=== PATIENT | female | born 1990 | race Caucasian/White ===

== ENCOUNTER 2016-10-29 08:30 | Emergency (ER) | payer OTHER ==
[2016-10-29] MEDS ORDERED: PENICILLIN G BENZATHINE LA 1,200,000 UNIT/2 ML DISP.SYRIN. IM ONE (08:57)
[2016-10-29] MEDS: PENICILLIN G BENZATHINE LA 1,200,000 UNIT/2 ML DISP.SYRIN. IM ONE (08:59)
[2016-10-29 09:15] VITALS: BP 107/77
--- NOTE | 2016-10-29 09:18 | ED.ADGEN ---
Past History Past Medical History: Other Past Surgical History: Other Alcohol Use: Rarely Drug Use: Other Social History Narrative: RECOVERING METH AND COCAINE USER, NONE FOR 7 YEARS Adult General HPI HPI Patient is a 25-year-old female presents emergency Department with a 48 hour history of intermittent subjective fever and sore throat. She denies any nausea , vomiting, cough, congestion. Has been using [id number] medications for her discomfort. Review of Systems Review of Systems Constitutional: Denies fever or chills [] Eyes: Denies change in visual acuity, redness, or eye pain [] HENT: Denies nasal congestion or sore throat [] Respiratory: Denies cough or shortness of breath [] Cardiovascular: No additional information not addressed in HPI [] GI: Denies abdominal pain, nausea, vomiting, bloody stools or diarrhea [] : Denies dysuria or hematuria [] Musculoskeletal: Denies back pain or joint pain [] Integument: Denies rash or skin lesions [] Neurologic: Denies headache, focal weakness or sensory changes [] Endocrine: Denies polyuria or polydipsia [] Current Medications Current Medications Current Medications Medications (Trade) Dose Ordered Sig/Obi Start Time Stop Time Status Last Admin Dose Admin Penicillin G Benzathine (Bicillin L-A) 1,200,000 unit STK-MED ONCE 10/29/16 08:57 10/29/16 08:58 DC Allergies Allergies Allergies Coded Allergies Type Severity Reaction Last Updated Verified Pertussis Vaccines Allergy Unknown 10/29/16 Yes Physical Exam Physical Exam Constitutional: Well developed, well nourished, no acute distress, non-toxic appearance. [] HENT: Normocephalic, atraumatic, bilateral external ears normal, oropharynx moist, no oral exudates, bilateral tonsils are erythematous and edematous with exudate, nose normal. [] Eyes: PERRLA, EOMI, conjunctiva normal, no discharge. [] Neck: Normal range of motion, no tenderness, supple, no stridor. [] Cardiovascular:Heart rate regular rhythm, no murmur [] Lungs & Thorax: Bilateral breath sounds clear to auscultation [] Abdomen: Bowel sounds normal, soft, no tenderness, no masses, no pulsatile masses. [] Skin: Warm, dry, no erythema, no rash. [] Extremities: No tenderness, no cyanosis, no clubbing, ROM intact, no edema. [] Neurologic: Alert and oriented X 3, normal motor function, normal sensory function, no focal deficits noted. [] Psychologic: Affect normal, judgement normal, mood normal. [] Current Patient Data Vital Signs Vital Signs Date Time Temp Pulse Resp B/P Pulse Ox O2 Delivery O2 Flow Rate FiO2 10/29/16 08:30 97.9 100 18 98 Room Air EKG EKG [] Radiology/Procedures Radiology/Procedures [] Course & Med Decision Making Course & Med Decision Making Pertinent Labs and Imaging studies reviewed. (See chart for details) Treated with Bicillin. Given supportive care and follow-up instructions. [] Final Impression Final Impression Strep pharyngitis [] Problems: Dragon Disclaimer Dragon Disclaimer This electronic medical record was generated, in whole or in part, using a voice recognition dictation system. NATHAN SHORT MD Oct 29, 2016 09:18
== END 2016-10-29 09:30 | disposition home or self-care (01) ==
LOC: ER 08:30
DX: J02.0 Streptococcal pharyngitis (principal); Z88.7 Allergy status to serum and vaccine
CPT/HCPCS: 96372; 99283; J0561

== ENCOUNTER 2016-12-24 13:01 | Emergency (ER) | payer OTHER ==
[~2016-12-24] VITALS: Ht 172.7 cm; Wt 74.8 kg
[2016-12-24 13:24] VITALS: BP 111/77
--- NOTE | 2016-12-24 13:39 | RAD ---
Right foot, 3 views, 12/24/2016: History: Foot pain, injury There is a nondisplaced fracture of the proximal phalanx of the fourth toe. No other fracture or dislocation is identified. IMPRESSION: Nondisplaced fracture of the proximal phalanx of the right fourth toe.
--- NOTE | 2016-12-24 13:46 | PHYS DOC ---
Past History Past Medical History: Other Past Surgical History: Other Alcohol Use: Rarely Drug Use: Other Adult General Chief Complaint Chief Complaint: FOOT INJURY PAIN HPI HPI This 26-year-old lady who presents to history of having accidentally kicked a foot locker with her toes of the right foot. She complains now of pain and tenderness over the right foot especially tender just proximal to the right fourth toe and third toe.\ She is concerned because the bruising seems to have gotten worse Review of Systems Review of Systems Constitutional: Denies fever or chills [] Eyes: Denies change in visual acuity, redness, or eye pain [] HENT: Denies nasal congestion or sore throat [] Respiratory: Denies cough or shortness of breath [] Cardiovascular: No additional information not addressed in HPI [] GI: Denies abdominal pain, nausea, vomiting, bloody stools or diarrhea [] : Denies dysuria or hematuria [] Musculoskeletal: Pain over her right foot as in history of present illness] Integument: Denies rash or skin lesions [] Neurologic: Denies headache, focal weakness or sensory changes [] Endocrine: Denies polyuria or polydipsia [] Allergies Allergies Allergies Coded Allergies Type Severity Reaction Last Updated Verified Pertussis Vaccines Allergy Unknown 10/29/16 Yes Physical Exam Physical Exam Constitutional: Well developed, well nourished, no acute distress, non-toxic appearance. [] HENT: Normocephalic, atraumatic, bilateral external ears normal, oropharynx moist, no oral exudates, nose normal. [] Eyes: PERRLA, EOMI, conjunctiva normal, no discharge. [] Neck: Normal range of motion, no tenderness, supple, no stridor. [] Cardiovascular:Heart rate regular rhythm, no murmur [] Lungs & Thorax: Bilateral breath sounds clear to auscultation [] Abdomen: Bowel sounds normal, soft, no tenderness, no masses, no pulsatile masses. [] Skin: Warm, dry, no erythema, no rash. [] Back: No tenderness, no CVA tenderness. [] Extremities: There is tenderness and bruising at the base of the right third and fourth toe Neurologic: Alert and oriented X 3, normal motor function, normal sensory function, no focal deficits noted. [] Psychologic: Affect normal, judgement normal, mood normal. [] EKG EKG [] Radiology/Procedures Radiology/Procedures X-ray examination of the right foot reveals a nondisplaced fracture right fourth toe proximal phalanx [] Impressions: Right fourth toe proximal phalanx fracture Course & Med Decision Making Course & Med Decision Making Pertinent Labs and Imaging studies reviewed. (See chart for details) Patient history keep icing her pain keep it elevated the toe was pretty taped to the next to the adjoining toes on either side. She was strict keep ice elevate stay off of his much as possible, gradually begin to increase activities requested problems return or call She was placed on hydrocodone/APAP to help sleep at night [] Dragon Disclaimer Dragon Disclaimer This chart was dictated in whole or in part using Voice Recognition software in a busy, high-work load, and often noisy Emergency Department environment. It may contain unintended and wholly unrecognized errors or omissions. Departure Departure: Referrals: PCP,NO (PCP) SAUL BOLTON MD December 24, 2016 13:46
[2016-12-24] MEDS ORDERED: HYDR-2758 PO (13:55)
== END 2016-12-24 14:04 | disposition home or self-care (01) ==
LOC: ER 13:01
DX: S92.514A Nondisplaced fracture of proximal phalanx of right lesser toe(s), initial encounter for closed fracture (principal); Z88.7 Allergy status to serum and vaccine; W22.8XXA Striking against or struck by other objects, initial encounter; Y93.89 Activity, other specified; Y92.89 Other specified places as the place of occurrence of the external cause; Y99.8 Other external cause status
CPT/HCPCS: 73630; 99284

== ENCOUNTER 2017-06-05 08:17 | Emergency (ER) | payer OTHER ==
[~2017-06-05 08:17] MED LIST: HYDR-2758 PO
[2017-06-05] MEDS ORDERED: AZIT1PAC9 PO (08:39)
[2017-06-05 08:48] VITALS: BP 128/92
--- NOTE | 2017-06-05 08:52 | PHYS DOC ---
Text Text Will treat with a z-pack and recommend outpatient follow up; return for any worsening symptoms. Dx Cough/Pharyngitis. Dismissed in stable condition. General Chief Complaint: COUGH Stated Complaint: COUGH,FEVER,CHEST HURTS Time Seen by MD: 08:36 Source: patient Exam Limitations: no limitations Problems: History of Present Illness Timing/Duration: yesterday Severity/Quality: moderate, productive cough Prior Episodes/Possible Cause: no prior episodes Associated Symptoms: other (Has had mild cough, raspy voice and some mild diarrhea. SHe had chest pain with cough. No LOUIS.) Allergies: Coded Allergies: Pertussis Vaccines (Verified Allergy, Unknown, 10/29/16) Past Medical History Medical History: other (has had positivie hepc c test in the past but no detectable levels; Also has PCOS) Surgical History: no surgical history LMP (Females 10-50): No period for one month Social History Smoker: non-smoker Alcohol: none Review of Systems Constitutional: chills, denies diaphoresis, denies fever EENTM: denies eye pain, denies blurred vision, nose congestion, throat pain Respiratory: cough, denies orthopnea, denies shortness of breath Cardiovascular: other (chest wall pain) Gastrointestinal: diarrhea All Other Systems: Reviewed and Negative Physical Exam Eyes: bilateral eye normal inspection Ears, Nose, Throat: other (Mild pharyngeal redness without exudate) Neck: non-tender Respiratory: normal breath sounds, no respiratory distress, no accessory muscle use Gastrointestinal: normal bowel sounds, non tender Extremities: normal range of motion Neurologic/Psychiatric: no motor/sensory deficits Skin: normal color Lymphatic: no adenopathy Orders, Labs, Meds GIven normal VS and normal exam no CXR indicated ZAK DUPONT MD Jun 05, 2017 08:52
== END 2017-06-05 08:48 | disposition home or self-care (01) ==
LOC: ER 08:17
DX: J02.9 Acute pharyngitis, unspecified (principal); Z88.7 Allergy status to serum and vaccine
CPT/HCPCS: 99283